=== PATIENT | female | born 1995 | race Caucasian/White ===

== ENCOUNTER → 2017-12-08 09:23 | Outpatient (CLI) | payer SELFPAY ==
[2017-12-08 10:58] LABS: Hemoglobin 10.3 g/dl (12.0-15.0); Mean Corp Hgb Conc 32.2 g/gl (32-36); Mean Corpuscular Hgb 31.1 pg (27.0-32.0); Mean Corpuscular Volume 96.7 fL (81-99); Platelet Count 202 K/mm3 (150-450); RBC Distribution Width CV 13.2 % (11.6-14.6); RBC Distribution Width SD 44.6 fl (35.1-43.9); Red Blood Count 3.31 M/mm3 (4.2-5.4); White Blood Count 8.6 K/mm3 (4.4-11.0)
[2017-12-08 11:00] LABS: Scan Indicated on CBC? Y/N NO
[2017-12-08 11:05] LABS: Glucose Challenge Gest 1H 50g 66 mg/dL (70-140)
[2017-12-08 12:00] LABS: HIV - WCH Non-Reactive (Nonreactive)
== END ==
PROVIDERS: Visit Provider Obstetrics & Gynecology
DX: Z34.83 Encounter for supervision of other normal pregnancy, third trimester (principal)
CPT/HCPCS: 36415; 82950; 85027; 86703

== ENCOUNTER → 2018-02-02 09:55 | Outpatient (CLI) | payer SELFPAY ==
[2018-02-02 12:35] LABS: Group B Strep DNA By PCR POSITIVE (Negative); Probe Check PASS
== END ==
PROVIDERS: Visit Provider Obstetrics & Gynecology
DX: Z36.85 Encounter for antenatal screening for Streptococcus B (principal)
CPT/HCPCS: 87653

== ENCOUNTER 2018-02-19 08:21 | Inpatient (IN) | payer SELFPAY ==
[2018-02-19 08:30] VITALS: BMI 27.8
[2018-02-19 09:09] LABS: ROM Internal Control Test YES-OK TO RESULT pt. (Internal QC)
[2018-02-19 09:10] LABS: ROM Patient Test POSITIVE (Negative)
[2018-02-19] MEDS: Lactated Ringers 1,000 ML 50 ML IV (09:22)
[2018-02-19 09:49] LABS: Hemoglobin 10.6 g/dl (12.0-15.0); Mean Corp Hgb Conc 32.1 g/gl (32-36); Mean Corpuscular Volume 96.5 fL (81-99); Mean Platelet Vol. 11.1 fl (6.2-12.0); Platelet Count 173 K/mm3 (150-450); RBC Distribution Width CV 13.3 % (11.6-14.6); RBC Distribution Width SD 44.2 fl (35.1-43.9); Red Blood Count 3.42 M/mm3 (4.2-5.4); Scan Indicated on CBC? Y/N NO; White Blood Count 10.2 K/mm3 (4.4-11.0)
[2018-02-19 09:53] LABS: Prothrombin Time (Protime)PT. 12.8 SECONDS (11.7-14.9)
[2018-02-19 09:54] LABS: Partial Thromboplast Time 26.8 Seconds (24.1-36.2)
[2018-02-19 09:56] LABS: Bedside Glucose 62 mg/dL (70-110)
[2018-02-19] MEDS: Dextrose 5%-Lactated Ringers 1,000 ML 150 ML IV (10:00)
[2018-02-19] MEDS: fentaNYL-bupivacaine (epidural) 100 ML BAG EPIDURAL (10:52)
[2018-02-19] MEDS: Oxytocin 30 units/NS 500 ml 30 UNITS/500 ML IV.SOLN 334 UNITS IV (12:00)
[2018-02-19] MEDS: Oxytocin 30 units/NS 500 ml 30 UNITS/500 ML IV.SOLN 167 UNITS IV (12:30)
--- NOTE | 2018-02-19 13:00 | PCM.OB.VAG ---
- Problem List (1) 38 weeks gestation of Status: Acute (2) Vacuum extraction, delivered, current hospitalization Status: Acute Vaginal Delivery Maternal Presentation: Spontaneous Rupture of Membranes, - - Latent labor Amniotic Membrane Rupture Type: Artificial Rupture of Membrane time: 02/19/18 - 0440h Amniotic Fluid Description: Clear Final NIKOS: 02/28/18 Final NIKOS Source: US <20 weeks Gestational age: 39 Weeks and 0 Days Date of Procedure: 02/19/18 Pre-Operative Diagnosis: 38 5/7wga, Cat II FHR Post-Operative Diagnosis: 38 5/7wga, Cat II FHR Surgery/ Procedure Performed: Vacuum Assisted Vaginal Delivery Anesthesiologist: Bisi Sebastian Type of Anesthesia: Epidural Description of Procedure: Patient was FD/+2 and OA on my arrival and pushed to +4 station. She began to have recurrent deep variable decelerations nadiring to the 60s bpm. I advised vacuum assisted vaginal delivery with review of r/b/i/a. Patient agreed to proceed. The Kiwi cap was placed at the flexion point and 500mmHg applied. There was significant descent with a single pull then a pop-off. The vacuum was again reapplied immediately to 500mmHg and with a single additional pull and maternal expulsive effort the head delivered. The vacuum was released. The shoulders and body delivered revealing a vigorous female infant. The infant was placed on the maternal abdomen and further attended by nursery personnel. The cord was doubly clamped and cut. Cord gases were obtained. A 1st degree perineal laceration was repaired with 3-0 Vicryl rapide. There was excellent hemostasis. Sponge counts correct x 2. Presentation: Vertex Placental Delivery Description: Spontaneous Cord Vessel Description: 3 Vessels Nuchal Cord Compression: Without compression Cord Gases drawn per routine: ABG, VBG Cord Entanglement: None Drain: Rust to straight drain A gender: Female (1 minute): 8 (5 minute): 9 Episiotomy Description: None Laceration: Midline, Perineal Extension/lac, 1st degree Medications given after delivery: IV Pitocin
[2018-02-19] MEDS: Ibuprofen 600 MG Tablet PO ×2 (14:14→20:55)
[2018-02-19 16:30] VITALS: BP 105/69; PULSE 76; RESP 16; TEMP 36.8
[2018-02-19 20:44] VITALS: BP 118/69; PULSE 69; RESP 18; TEMP 36.6
[2018-02-20 00:05] VITALS: BP 100/64; PULSE 60; RESP 18; TEMP 36.6
[2018-02-20] MEDS: Acetaminophen 500 MG Tablet 1000 MG PO ×3 (00:10→19:36)
[2018-02-20 03:45] VITALS: BP 95/57; PULSE 58; RESP 17; TEMP 36.4
[2018-02-20] MEDS: Ibuprofen 600 MG Tablet PO ×2 (03:59→11:31)
[2018-02-20 08:00] VITALS: BP 100/68; PULSE 78; RESP 18; TEMP 36.6
[2018-02-20] MEDS: Prenatal Vits Tablet 1 TABLET PO (08:20)
--- NOTE | 2018-02-20 08:50 | PCM.PN.OB ---
Patient Problems: Active and Suspected Problems 38 weeks gestation of (Acute) Subjective: Denies significant pain. No complaints. No heavy lochia. She is bottlefeeding. She would like to go home today. Objective: AVSS - Physical Exam General: Alert, Oriented x3, Cooperative, No apparent distress Lungs: Normal air movement Cardiovascular: Regular rate, Regular Rhythm, Normal S1, Normal S2 Abdomen: Soft, Non Tender, Non-Distended, - - Fundus firm and nontender, lochia moderate Extremities: No edema, No Calf Tenderness Neurological: Neuro grossly intact Psych/Mental Status: Normal Affect, Appropriate, Alert and oriented to time, place, person, mood and affect Vital Signs Temp Pulse Resp BP Pulse Ox 98.5 F 68 16 96/60 96 02/21/18 08:15 02/21/18 08:15 02/21/18 08:15 02/21/18 08:15 02/21/18 08:15 Oxygen Delivery Method Room Air Weight: 75.75 kg Body Mass Index (BMI) 27.8 Intake and Output for Last 24 Hours 02/19/18 02/20/18 02/21/18 23:59 23:59 23:59 Intake Total 1999 / 2000 Output Total 1200 / 1200 Balance 800 / 800 Medical Necessity - Tobacco Use Smoking Status: Never smoker Assessment/Plan Active and Suspected Problems 38 weeks gestation of (Acute) 22yo PPD#1 s/p VAVD doing well. -O positive, Rubella immune -Bottlefeeding - observation for GBS per Pediatrics, pt to discuss further for Peds. Will d/c home tomorrow.
[2018-02-20 12:00] VITALS: BP 102/64; PULSE 62; RESP 18; TEMP 36.6
[2018-02-20 16:00] VITALS: BP 96/54; PULSE 70; RESP 18; TEMP 36.6
[2018-02-20 20:27] VITALS: BP 106/69; PULSE 68; RESP 18; TEMP 36.8
[2018-02-21 02:00] VITALS: BP 101/60; PULSE 76; RESP 16; TEMP 36.4
[2018-02-21] MEDS: Acetaminophen 500 MG Tablet 1000 MG PO (05:54)
[2018-02-21 08:15] VITALS: BP 96/60; PULSE 68; RESP 16; TEMP 36.9; O2SAT 96
[2018-02-21] MEDS: Senna/Docusate Sodium 1 Tablet PO (08:55)
[2018-02-21] MEDS: Prenatal Vits Tablet 1 TABLET PO (08:55)
--- NOTE | 2018-02-21 10:10 | PCM.PN.OB ---
Patient Problems: Active and Suspected Problems 38 weeks gestation of (Acute) Subjective: No issues overnight. She has mild cramping, but it is tolerable. Denies heavy lochia. She looks forward to going home today. Objective: AVSS - Physical Exam General: Alert, Oriented x3, Cooperative, No apparent distress HEENT: Atraumatic, Normocephalic Lungs: Clear to auscultation, Normal air movement Cardiovascular: Regular rate, Regular Rhythm Abdomen: Soft, Non Tender, Non-Distended, - - Fundus firm and nontender Extremities: No edema, No Calf Tenderness Neurological: Neuro grossly intact Psych/Mental Status: Normal Affect, Appropriate, Alert and oriented to time, place, person, mood and affect Vital Signs Temp Pulse Resp BP Pulse Ox 98.5 F 68 16 96/60 96 02/21/18 08:15 02/21/18 08:15 02/21/18 08:15 02/21/18 08:15 02/21/18 08:15 Oxygen Delivery Method Room Air Weight: 75.75 kg Body Mass Index (BMI) 27.8 Intake and Output for Last 24 Hours 02/19/18 02/20/18 02/21/18 23:59 23:59 23:59 Intake Total 2000 / 2000 Output Total 1200 / 1200 Balance 800 / 800 Medical Necessity - Tobacco Use Smoking Status: Never smoker Assessment/Plan Active and Suspected Problems 38 weeks gestation of (Acute) 22yo PPD#2 s/p VAVD doing well. -O positive, Rubella immune -Bottlefeeding -d/c home today
--- NOTE | 2018-02-21 10:17 | DCINST_ITS ---
Discharge Diet: No Restrictions Discharge Activity: Return to Normal Activity, May Shower, May Take a Tub Bath May resume sexual activity in: 6 weeks Lifting Restrictions: 10-20lb Call your doctor if your incision/area has: Continuous Slow Oozing, Sudden Increased Bleeding, Increased Pain/ Swelling, Increased Redness, Foul Smelling Discharge Call your doctor if you observe: Fever of 101 or Higher, Inability to urinate, Inability to have a bowel movement, Using more than one pad per hour, Shortness of breath, Chest pain, Calf discomfort, Uncontrolled pain Additional Instructions: If you experience any of the following, contact your healthcare provider. * Bleeding that soaks a pad every hour for 2 hours * Fever 100.4 or higher * Unrelieved incision or abdominal pain * Swelling, redness, discharge or bleeding from your incision or episiotomy site * Your incision begins to separate * Problems urinating (including inability to urinate or burning while urinating) . * Visual changes * Severe headache * Flu-like symptoms * Pain or redness in one of both of your breasts * Pain, warmth, tenderness or swelling in your legs, especially the calf area * Frequent nausea and vomiting * Symptoms of depression or anxiety If you experience any of the following, call 911 or go to the nearest Emergency Room. * Chest pain * Problems breathing * Seizure activity * Partial or complete paralysis of a body part, slurred speech, weakness or drooping of the face, or a sudden inability to walk or hold your balance Allergies/Adverse Reactions: Allergies No Known Allergies Allergy (Verified 02/19/18 09:45) Medications to take at Discharge Docusate Sodium [Colace] 100 mg PO BID PRN PRN #60 cap 02/19/18 Ibuprofen 600 mg PO TID PRN #30 tab 02/19/18 Vits [Prenatabs FA] 1 tablet PO DAILY 02/19/18 The following prescriptions were given: Docusate Sodium [Colace] 100 mg PO BID PRN PRN #60 cap PRN Reason: Constipation Ibuprofen 600 mg PO TID PRN #30 tab PRN Reason: Pain Please Follow Up With: Haydee Ceron MD When: 6 weeks
[2018-02-21] MEDS: Ibuprofen 600 MG Tablet PO (11:00)
[2018-02-21 11:14] VITALS: BP 102/62; PULSE 67; RESP 16; TEMP 36.7; O2SAT 96
== END 2018-02-21 12:20 | disposition home or self-care (01) | DRG 775 ==
LOC: WPOUT 08:29 → WP 09:22
PROVIDERS: Admitting Provider Obstetrics & Gynecology; Visit Provider Obstetrics & Gynecology
DX: O76 Abnormality in fetal heart rate and rhythm complicating labor and delivery (principal); O70.0 First degree perineal laceration during delivery; Z37.0 Single live birth; O99.824 Streptococcus B carrier state complicating childbirth; Z3A.38 38 weeks gestation of pregnancy
CPT/HCPCS: 59025; 59050; 82962; 84112; 85027; 85610; 85730; 86850; 86900; J7120

== ENCOUNTER 2022-07-26 08:43 | Inpatient (IN) | payer SELFPAY ==
[2022-07-23 08:52] LABS: Absolute Neutrophil Count 2.8 X10^3/uL (2.0-7.7); Basophil# 0.04 X10^3/uL; Basophil% 0.8 % (0-1); Eosinophil# 0.33 X10^3/uL; Eosinophils% 6.3 % (0-5); Hematocrit 39.5 % (37-47); Hemoglobin 13.2 g/dL (12.0-15.0); Lymphocyte % 32.5 % (19-41); Mean Corp Hgb Conc 33.4 g/dL (32-36); Mean Corpuscular Volume 95.6 fL (81-99); Mean Platelet Vol. 10.3 fl (6.2-12.0); Monocyte% 7.6 % (0-10); NRBC Flagged by Analyzer 0 % (0-5); Neutrophil # 2.75 X10^3/uL (2.7-7.7); Neutrophil % 52.6 % (47-70); Platelet Count 234 K/mm3 (150-450); RBC Distribution Width CV 12.4 % (11.6-14.6); RBC Distribution Width SD 44.2 fl (35.1-43.9); Red Blood Count 4.13 M/mm3 (4.2-5.4); White Blood Count 5.2 K/mm3 (4.4-11.0)
[2022-07-23 09:20] LABS: Magnesium 2.1 mg/dL (1.6-2.6)
[2022-07-26] VITALS (18 sets, daily range): BP systolic 78–127; BP diastolic 48–79; PULSE 51–93; RESP 16–18; TEMP 36.6–37.3; O2SAT 96–100; BMI 25.6
--- NOTE | 2022-07-26 | HYST_PTH ---
PATIENT: JIGNESH FLANAGAN LOC: MS3 U#:[id number] AGE/SX: 27/F ROOM: [facility] RE07/26/[address]: Dr. Debbie Worley MD : 1995 BED: 1 DIS: 07/27/2022 SPEC #: [id number] RECD: 07/26/22 13:44 STATUS: PETEY REJonathan #: [id number] EBONY: 07/26/22 00:[address]: Debbie Worley DEPT: SURGICAL PATHOLOGY RECD BY: [place] ENTERED: 07/26/22 13:44 SP TYPE: HYSTERECT OTHR DR: MD Dr. Josue Porter MD Tissues: Uterus, NOS Procedures: Surgery Specimen Level V HEADER OPERATION: ERAS, IUD removal, vaginal hysterectomy, salpingectomy PRE-OP DIAGNOSIS: Incomplete uterovaginal prolapse, premenstrual dysphoric disorder TISSUE SUBMITTED: Uterus, bilateral fallopian tubes MICROSCOPIC DIAGNOSIS Uterus, hysterectomy: Cervix ? nabothian cysts and mild chronic inflammation. Endometrium ? weakly proliferative endometrium with focal cystic and decidual change. Myometrium ? superficial adenomyosis. Fallopian tubes ? benign paratubal cysts. AM:cristine 07/29/2022 MICROSCOPIC DESCRIPTION Slides are reviewed. GROSS DESCRIPTION Received in fixative is one container labeled with the patient's name and designated uterus. The specimen consists of a uterus with attached cervix with detached fallopian tubes. The uterus with cervix measures 7.2 x 5 x 3.5 cm and weighs 57 gm. The endocervical canal measures 3 cm in length and is grossly unremarkable. The triangular endometrial cavity measures 3 x 2.7 cm. The velvety, light meneses endometrium measures up to 0.2 cm in thickness. The myometrium measures 2 cm in average thickness and is free of mass lesions. The right and left fallopian tubes are similar in appearance with average lengths of 3.5 cm and average diameters of 0.8 cm. One fallopian tube contains a paratubal cyst adjacent to the fimbrial end that measures 0.6 cm in contains clear fluid. Vessel Specialist sections are submitted in eight cassettes as follows: 1 - anterior cervix, 2 - posterior cervix, 3 & 4 - anterior uterine wall, 5 & 6 - posterior uterine wall, 7 - fallopian tube with paratubal cyst, 8 - the other fallopian tube. / AM:cristine 07/26/2022 TC:5 [facility]: [id number]
--- NOTE | 2022-07-26 06:39 | HP.PCM_ITS ---
History and Physical Intake Vital Signs ? 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 01/17/22 [History Confirmed 07/08/22] Post menopausal: No Patient : No : No PFSH Family History? Grandfather Diabetes Social History? Smoking Status:? Never smoker alcohol intake:? never substance use type:? does not use caffeine:? Yes seatbelt use:? 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 she still has the IUD in and has light menses.? Female Reproductive History Menopausal Symptoms: Yes night sweats History ? ? ? 3 ? Elective abortions ? Hx Para ? ? ? 3 ? Spontaneous abortions ? Hx # Term Pregnancies ? Ectopic pregnancies ? Hx # Pregnancies ? Multiple births ? # of living children ? ? ? 3 Past Pregnancies B Del. Date Name GA/Weeks Outcome Route Bth Weight Gen Labor Lgth Anesthesia Del Locatn Provider FOB Unknown 2015 Shaun 39 live - full term NS VD ? Male ? ? Pomeredwight Campuzano ? Unknown 2017 Elvie 38 live - full term NS VD ? Female ? ? [facility] Nettie Landeros ? Unknown 2019 Magi 40 live - full term NS VD ? Female ? ? 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 Delivery Date:?? Last Updated by: Debbie Worley MD ? ? ? large third degree laceration ROS Const Constitutional: Reports night sweats Eyes Eyes: Denies system reviewed and no additional complaints, except as documented, as per HPI, blurry vision, change in vision, diplopia, dry eyes, irritation, loss of peripheral vision, photophobia, spots in vision or other ENT ENT: Reports system reviewed and no additional complaints, except as documented Cardio Card: Denies chest pain Resp Resp: Denies cough or dyspnea GI GI: Denies abdominal pain, bloating, change in stool character, constipation, fecal incontinence, nausea or vomiting : Reports prolapse symptoms and urinary incontinence; Denies pelvic pain, sexual dysfunction, urinary frequency, urinary urgency, vaginal discharge, vaginal odor or vaginal pruritus Musc Musc: Denies arthralgias, back pain or muscle weakness Neuro Neuro: Reports system reviewed and no additional complaints, except as documented Exam Const General: cooperative, healthy appearing, comfortable, no acute distress and well developed Orientation: alert [facility] Head: normal to inspection, normocephalic and atraumatic Ears: hearing grossly normal bilaterally and external ears normal Nose: external nose normal and nares normal Face and sinus: normal facial exam Neck Neck: normal visual inspection, full ROM, no lymphadenopathy and trachea midline Thyroid: thyroid normal GI Inspection: normal to inspection and non-distended Palpation: soft, no hepatosplenomegaly, no hepatomegaly, not rigid and nontender General: bladder normal to palpation External Female Exam: abnormal external appearance (atrophic introitus), normal appearance of the urethra and no lesions Urethra: normal appearance of the urethra Speculum Exam - Vagina: abnormal appearance of the vagina, normal vaginal discharge, vagina atrophic and no lesions Speculum Exam - Cervix: normal appearance of the cervix Bimanual Exam- Vagina & Uterus: normal bimanual exam, uterine size normal, bladder normal to palpation, uterine shape normal, uterine mobility normal and non-tender Bimanual Exam- Adnexa, other: normal adnexae, no masses, rectocele, cystocele and vaginal apex descent Pelvic Support: cystocele, rectocele and vaginal apex descent Musc Other: gross motor intact no deficits, full bilateral strength Skin General: no rashes or lesions noted and atrophy Neuro General: patient alert, patient awake, moves all extremities and no focal motor deficits Motor: muscle tone normal throughout Extrem General: normal to inspection and no pedal edema Psych Appearance: grossly normal Mental Status: mental status grossly normal Affect: normal affect Speech and Movement: speech and movement normal Coding Level of Care Code No Charge Diagnoses Incomplete uterovaginal prolapse? N81.2 PMDD (premenstrual dysphoric disorder)? F32.81 Assessment and Plan Assessment and Plan (1) Incomplete uterovaginal prolapse: ?Status:?Acute ?Comment: s/p fatimah echevarria TVHBS combo case. (2) PMDD (premenstrual dysphoric disorder): ?Status:?Acute ?Comment: iud. handout given Plan After discussing the patient's diagnosis and treatment plan options, patient wishes to proceed with surgical management.? I have discussed with the patient the risks, benefits, and alternatives of the procedure which include but are not limited to risks of anesthesia, bleeding, infection, possible damage to bowel, bladder, or surrounding vasculature which could lead to additional surgery to evaluate any complications.? Patient agrees to procedure and wishes to proceed.? ACOG/uptodate references given for additional information regarding procedure.? UPDATE- I have seen the patient and performed any clinically relevant updates to the history and physical exam. Debbie Worley MD
[2022-07-26 07:02] LABS: Internal QC Validated? YES +Cl - CLEAR BKGD; Pregnancy, Urine Negative Negative
[2022-07-26] MEDS: Acetaminophen 500 MG Tablet 1000 MG PO ×3 (07:14→18:46)
[2022-07-26] MEDS: Lactated Ringers 1,000 ML 40 ML IV ×3 (07:14→12:03)
[2022-07-26] MEDS: Gabapentin 600 MG Tablet PO (07:14)
[2022-07-26] MEDS: Celecoxib 200 MG Capsule 400 MG PO (07:14)
[2022-07-26] MEDS: Scopolamine 1mg/72hr Patch 1 PATCH TD (07:17)
[2022-07-26] MEDS: Enoxaparin 40 MG/0.4 ML Syringe SC (07:17)
[2022-07-26 07:50] LABS: Bedside Glucose 86 mg/dL (74-106)
[2022-07-26] MEDS: Cefazolin 2 GM in 0.9% Normal Saline 100 ML IV (08:23)
--- NOTE | 2022-07-26 09:17 | PCM.OPRPT ---
Problems Associated Problem List Diagnoses (1) Incomplete uterovaginal prolapse: Report of Operation Date of Procedure: 07/26/22 Pre-Operative Diagnosis: Incomplete uterovaginal prolapse, stress urinary incontinence Post-Operative Diagnosis: Same Surgery/Procedure Performed:: posterior repair, midurethral sling insertion, cystoscopy with bilateral ureteral catheterization Surgeon: Liset Nelson Type of Anesthesia: General Estimated Blood Loss (mL): 25cc Description of Procedure: The patient is a 27-year-old female with significant uterovaginal pelvic organ prolapse and stress urinary incontinence. She presents for surgical intervention in combination with hysterectomy and pelvic reconstruction. Informed consent was obtained. The patient was taken to the operating room and placed on the operating room table. Anesthesia monitored the head, neck, airway, IV access and vital signs throughout the case. Once anesthesia was appropriate ministered, the patient was placed into dorsal lithotomy position and was prepped and draped in usual sterile fashion. Rust catheter was inserted and the bladder was drained. Dr. Worley performed her portion of the procedure and close the vaginal cuff. At this time the case was turned to wv. The apical and anterior defects were not significant enough to require further intervention. She did continue to have a posterior defect present distally. The submucosa was injected with vasopressin for hemostatic control and hydrostatic dissection. An incision approximately 2 cm in length was then made. Sharp and blunt dissection was performed until the rectovaginal fascia was identified. This was then brought together in a [address] down to and including the perineal body. The vaginal mucosa was then closed using running interlocking 2-0 Vicryl. The mid urethra was then identified and injected submucosally with vasopressin as well. The urethra was very short, and the decision was made to place the sling slightly closer to her bladder neck. A midline incision was made and sharp and blunt dissection was performed on either side of the urethra with care being taken to avoid entrance into the urethra or the vaginal mucosa. Using the provided trochars, the Altis mid urethral sling was placed into her obturator complexes bilaterally. The sling lay flat against the urethra and was placed using the tensioning suture. The suture was then cut in the midline incision was closed using running interlocking 2-0 Vicryl. The patient was then taken out of Trendelenburg positioning and her Rust catheter was removed. The cystoscope was inserted through the urethra under direct visualization into the urinary bladder. There were no entrances into the urethra or the urinary bladder with any foreign object. There is no hemorrhage identified. A Pollick catheter was then used to gently cannulate each ureteral orifice and was advanced easily to 20 cm by laterally without evidence of obstruction or hemorrhage. At this time the cystoscope was removed and the Rust catheter was replaced with the balloon inflated with 10 cc. The vagina was packed with vaginal packing. The patient was awakened and taken to the recovery room in good condition. There were no complications during this procedure. Grafts/Implants Used: Altis midurethral sling Complications none Admit VTE Documentation VTE Present on Admission: Yes VTE Mechan Device Prophylaxis: SCD's VTE Pharm Prophylaxis ordered?: Yes
--- NOTE | 2022-07-26 09:18 | DCINST_ITS ---
Discharge Instructions Diet Discharge Diet: No restrictions Activity Discharge Activity: May Shower May resume sexual activity in: 8 weeks Lifting Restrictions: 5 pounds Additional Activity Instructions:: No strenuous activity, no exercise, no sexual activity, no tub bathing, no swimming, no hot tubs, no vacuuming Dressing / Incision Call your doctor if your incision/area has: Continuous Slow Oozing, Sudden Increased Bleeding, Increased Pain/ Swelling, Increased Redness, Foul Smelling Discharge and Swelling at the incision site Call your doctor if you observe: Fever of 101 or Higher, Inability to urinate and Inability to have a bowel movement Follow Up Care Please Follow Up With: Liset Nelson MD When: In the office in 2 weeks, call for appointment Test Results: Test results from this visit will be discussed in further detail at your follow- up appointment, if applicable. Discharge Plan Admission Admit Date/Time: 07/26/22 08:43 Attending Provider: Debbie Worley Primary Care Provider: Josue Guthrie Consulting Providers: Liset Nelson Discharge Orders/Prescriptions Prescriptions: New oxycodone-acetaminophen [Percocet] 5-325 mg tablet 1 tab PO Q8H PRN (Reason: pain) 5 Days Qty: 20 0RF cephalexin [cephalexin] 500 mg capsule 500 mg PO Q12 3 Days Qty: 6 0RF Continued magnesium Tablet 2 tab PO DAILY Referrals / Follow Up: Josue Guthrie MD [Primary Care Provider] - Disposition Disposition (needs filled in before D/C Order can be placed): Home, Self Care
[2022-07-26] MEDS: Vasopressin 20 UNITS/ML Vial (10:29)
[2022-07-26] MEDS: Ondansetron 4 MG/2 ML Vial IV (11:23)
[2022-07-26] MEDS: Cephalexin 500 MG Capsule PO ×2 (14:13→21:16)
[2022-07-26] MEDS: Docusate Sodium 100 MG Capsule PO ×2 (14:13→21:16)
[2022-07-26] MEDS: Ketorolac 30 MG/ML Syringe IV ×2 (14:13→18:46)
--- NOTE | 2022-07-26 16:21 | PCM.OPRPT ---
Problems Associated Problem List Diagnoses (1) Incomplete uterovaginal prolapse: (2) PMDD (premenstrual dysphoric disorder): Report of Operation Date of Procedure: 07/26/22 Pre-Operative Diagnosis: see PL Post-Operative Diagnosis: same Surgery/Procedure Performed:: TVH BS Description of Surgical Findings:: nl uterus tubes school community relations coordinator: Thao Vallejo Type of Anesthesia: General Specimen's removed: uterus, tubes Drains: martin Fluids Replaced: crystalloid Description of Procedure: Patient was taken to the operating room and was placed under general anesthesia was prepped and draped in normal sterile fashion in the dorsal lithotomy position. Preoperative antibiotics and SCDs and Martin catheter was placed inside the bladder. Weighted speculum was placed in the vagina and the anterior and posterior lip of the cervix was grasped with 2 Victor M clamps and circumferentially injected with dilute vasopressin. A circumferential incision was made with a scalpel and the posterior cul-de-sac was entered into sharply and a longneck speculum was placed. The anterior cul-de-sac was also dissected down and entered into sharply and the uterosacral ligaments were clamped cut and suture ligated bilaterally followed by the cardinal ligaments which were Clamped cut and suture ligated bilaterally with 0 Monocryl. The uterus serially descended and progressive bites were taken bilaterally up to the level of the utero-ovarian ligament bilaterally which was clamped transected and double ligated with 0 Monocryl suture and 0 Vicryl free tie. Bilateral fallopian tubes and ovaries were well visualized and noted be within normal limits and the tube was clamped at the base and transected and ligated with O monocryl. Excellent hemostasis was noted. The vagina was closed with [id number] 0 Vicryl pop offs including the posterior and anterior peritoneum in the reapproximation. Excellent hemostasis was noted. Then Dr. Nelson began her portion of the procedure. Grafts/Implants Used: none Complications none Admit VTE Documentation VTE Present on Admission: No VTE Mechan Device Prophylaxis: SCD's VTE Pharm Prophylaxis ordered?: Yes Multi Select Codes Urinary/Genital Urinary/Genital CPT Codes: 83735 TVH+BS/O <250gr uterus
--- NOTE | 2022-07-26 16:22 | DCINST_ITS ---
Discharge Instructions Diet Discharge Diet: No restrictions Activity May resume sexual activity in: 8 weeks Additional Activity Instructions:: No strenuous activity, no exercise, no sexual activity, no tub bathing, no swimming, no hot tubs, no vacuuming Dressing / Incision Call your doctor if your incision/area has: Continuous Slow Oozing, Sudden Increased Bleeding, Increased Pain/ Swelling, Increased Redness, Foul Smelling Discharge and Swelling at the incision site Call your doctor if you observe: Fever of 101 or Higher, Inability to urinate and Inability to have a bowel movement Follow Up Care Please Follow Up With: Liset Nelson MD Test Results: Test results from this visit will be discussed in further detail at your follow- up appointment, if applicable. Discharge Plan Admission Admit Date/Time: 07/26/22 08:43 Attending Provider: Debbie Worley Primary Care Provider: Josue Guthrie Consulting Providers: Liset Nelson Discharge Orders/Prescriptions Prescriptions: New oxycodone-acetaminophen [Percocet] 5-325 mg tablet 1 tab PO Q8H PRN (Reason: pain) 5 Days Qty: 20 0RF cephalexin [cephalexin] 500 mg capsule 500 mg PO Q12 3 Days Qty: 6 0RF Continued magnesium Tablet 2 tab PO DAILY Referrals / Follow Up: Josue Guthrie MD [Primary Care Provider] - Disposition Disposition (needs filled in before D/C Order can be placed): Home, Self Care
[2022-07-26] MEDS: oxyCODONE 5 MG Tablet PO (17:18)
[2022-07-26] MEDS: Ondansetron ODT 4 MG Tablet PO (17:40)
[2022-07-26] MEDS: 0.9% Saline Lock 10 ML Syringe IV (18:46)
[2022-07-27] VITALS (7 sets, daily range): BP systolic 97–124; BP diastolic 62–77; PULSE 58–82; RESP 16–18; TEMP 36.7–37.1; O2SAT 98–100
[2022-07-27] MEDS: Ketorolac 30 MG/ML Syringe IV ×3 (00:30→11:44)
[2022-07-27] MEDS: Acetaminophen 500 MG Tablet 1000 MG PO ×3 (00:30→14:02)
[2022-07-27] MEDS: Magnesium Chloride 64 MG Delay Rel.Tablet 128 MG PO (00:42)
[2022-07-27] MEDS: 0.9% Saline Lock 10 ML Syringe IV ×2 (06:39→11:44)
[2022-07-27 06:55] LABS: Hematocrit 34.8 % (37-47); Hemoglobin 11.2 g/dL (12.0-15.0); Mean Corp Hgb Conc 32.2 g/dL (32-36); Mean Corpuscular Hgb 30.9 pg (27.0-32.0); Mean Corpuscular Volume 96.1 fL (81-99); Mean Platelet Vol. 10.7 fl (6.2-12.0); Platelet Count 210 K/mm3 (150-450); RBC Distribution Width CV 12.5 % (11.6-14.6); RBC Distribution Width SD 44.2 fl (35.1-43.9); Red Blood Count 3.62 M/mm3 (4.2-5.4); White Blood Count 11.1 K/mm3 (4.4-11.0)
[2022-07-27] MEDS: Docusate Sodium 100 MG Capsule PO (09:01)
[2022-07-27] MEDS: Enoxaparin 40 MG/0.4 ML Syringe SC (09:01)
[2022-07-27] MEDS: Cephalexin 500 MG Capsule PO (09:01)
--- NOTE | 2022-07-27 11:15 | NURSING ---
called in after paged by primary RN Jamilah regarding vaginal packing. Jamilah RN states in with another patient asked this nurse to inform Dr. Nelson that generally nursing does not remove vaginal packing, packing still in wondering if she was coming in to see pt. Dr. Nelson verbalized upset that packing was not removed or not notified sooner as ordered 3.5hrs ago to be removed, wasn't called earlier. She would be in shortly Jamilah RN notified of response.
--- NOTE | 2022-07-27 11:21 | PCM.PROGNOTE ---
Subjective Subjective Patient did well overnight. She is resting comfortably in bed. No nausea and her pain is controlled. Objective Data Objective Data Vital Signs: Vital Signs Temp Pulse Resp BP Pulse Ox O2 Del Method O2 Flow Rate 98.3 F 82 18 112/64 100 Room Air 4 07/27/22 09:00 07/27/22 09:00 07/27/22 09:00 07/27/22 09:00 07/27/22 09:00 07/27/22 09:00 07/27/22 04:32 Oxygen Flow Rate (L/min) 4 Oxygen Delivery Method Room Air Weight: 72 kg Body Mass Index (BMI) 25.6 Intake & Output: Intake and Output for Last 24 Hours 07/25/22 07/26/22 07/27/22 23:59 23:59 23:59 Intake Total 2212 / 2212 689.83 / 689.83 Output Total 940 / 1440 1450 / 1450 Balance 1272 / 772 -760.17 / -760.17 Lab / Micro Data Result Diagrams: 07/27/22 06:32 Labs: Laboratory Results - last 24 hr 07/27/22 06:32: WBC 11.1 H, RBC 3.62 L, Hgb 11.2 L, Hct 34.8 L, MCV 96.1, MCH 30.9, MCHC 32.2, RDW Std Deviation 44.2 H, RDW Coeff of Mary 12.5, Plt Count 210, MPV 10.7 Physical Exam Narrative Alert and oriented x3 in no acute distress Abdomen is soft, nontender nondistended Rust catheter and vaginal packing were removed without incident SCDs in place and no calf tenderness Assessment & Plan Assessment/Plan (1) Incomplete uterovaginal prolapse: (2) Overflow stress urinary incontinence in female: PLAN: Plan Trial of void today Discharge later today Follow-up in the office in 2 weeks
--- NOTE | 2022-07-27 12:52 | NURSING ---
PVR completed. pt states she voided a little bit into the toilet as well MD notified. Repeat PVr with next void.
--- NOTE | 2022-07-27 13:45 | CASEMGMT ---
JOSSELYN LANDRY CANOE MAKER CM to room to meet with patient for initial transition planning/care coordination assessment. JOSSELYN LANDRY introduced self and role at [facility]. Pt voices understanding and consents to assessment at this time. Pt resting in bed in no distress at this time. @ bedside. Pt is A/O at this time and answers all questions appropriately. Care providers, pharmacy, and demographics verified/updated at this time. PCP: Dr Guthrie Specialists: Dr Worley--[employer] Preferred Pharmacy: [facility] Retail Insurance: [facility] Package Plan Prescription Benefit: no Living Will/HPOA: Pt does not currently have LW/HCPOA LNOK: Josue Living Arrangements: Pt lives w/ and 3 children-ages 2, 4, 6. Independent Transportation: Hire drivers DME: Denies using any DME and denies needs. HHC/SNF: No hx Pt wishes to return home and states has no concerns with going home at time of discharge. PLAN: Home Anny BAGLEY RN, CM
== END 2022-07-27 14:45 | disposition home or self-care (01) | DRG 743 ==
LOC: SDC 10:46 → MS3 10:46
PROVIDERS: Anesthesiology; Urology; Admitting Provider Obstetrics & Gynecology; PCP Family Medicine; Referring Provider Obstetrics & Gynecology; Visit Provider Obstetrics & Gynecology
PROC: 0UT97ZZ Resection of Uterus, Via Natural or Artificial Opening (ICD-10-PCS; CPT 58260; principal; 2022-07-26 07:40)
PROC: 0JQC0ZZ Repair Pelvic Region Subcutaneous Tissue and Fascia, Open Approach (ICD-10-PCS; CPT 57260; 2022-07-26 07:40)
DX: N81.2 Incomplete uterovaginal prolapse (principal); F32.81 Premenstrual dysphoric disorder; N80.03 Adenomyosis of the uterus; N36.42 Intrinsic sphincter deficiency (ISD); N95.1 Menopausal and female climacteric states; N39.46 Mixed incontinence; N88.8 Other specified noninflammatory disorders of cervix uteri; N83.8 Other noninflammatory disorders of ovary, fallopian tube and broad ligament
CPT/HCPCS: 36415; 81025; 82962; 83735; 85025; 85027; 86850; 86900; 86901; 88307; 99251; J7120; A4216; C1758; G0463; J2405; J3475

== ENCOUNTER → 2023-09-05 | Outpatient (CLI) | payer OTHER, SELFPAY | END | disposition home or self-care (01) | LOC: LABSPEC 11:57 | PROVIDERS: PCP Family Medicine; Visit Provider Obstetrics & Gynecology | DX: N39.0 Urinary tract infection, site not specified (principal) | CPT/HCPCS: 87086 ==

== ENCOUNTER 2025-03-02 11:08 | Day surgery (SDC) | payer SELFPAY, OTHER ==
--- NOTE | 2025-03-02 11:38 | HP.PCM_ITS ---
[facility] - General General Date of Admission: 03/02/25 Date of Service: 03/02/25 Chief Complaint: Family history of colon cancer and abdominal pain HPI Narrative JIGNESH FLANAGAN, is a 29 F who presents with a family hx of colon cancer and abdominal pain Pt here to be scheduled for colonoscopy and EGD. Pt father was diagnosed with colon cancer at age 60. He underwent surgery and chemotherapy but about one year after his diagnosis. Pt brother was also diagnosed with colon cancer at age 30. He had undergone surgical resection and chemotherapy with good results. Pt has has had chronic constipation for years. She typically has a bm every other day. She endorses issues with abd cramping and diarrhea every couple of months. She has epigastric knawing pain that never goes away. [facility] Medical History (Updated 03/02/25 @ 11:[address] Torito Colindres, DO) Bladder disease Difficulty swallowing Gastric reflux Overflow stress urinary incontinence in female Wears glasses Non-smoker Incomplete uterovaginal prolapse Home Medications ?Medication ?Instructions ?Recorded ?Last Taken ?Type multivitamin 1 tab PO DAILY 09/05/23 Unkn own History Allergy/AdvReac Type Severity Reaction Status Date / Time No Known Allergies Allergy Verified 03/01/25 13:13 Family History Grandfather Diabetes Father Colon cancer, Onset Age: 60 Surgical History H/O bilateral salpingectomy H/O total vaginal hysterectomy Social History Smoking Status: Never smoker alcohol intake: never substance use type: does not use caffeine: Yes seatbelt use: always 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 Constitutional Constitutional: Denies fatigue, fever(s), poor appetite, weight gain or weight loss Gastrointestinal Gastrointestinal: Denies belching, bloating, change in bowel habits, change in stool character, chewing difficulty, coffee ground emesis, constipation, cramping, diarrhea, dyspepsia, dysphagia, early satiety, excessive flatus, fecal incontinence, heartburn, hematemesis, hematochezia, hemorrhoids, loose stools, melena, nausea, odynophagia, rectal bleeding, tenesmus, vomiting or weight changes Physical Exam Const alert, oriented x3, no apparent distress and healthy appearing General Appearance: cooperative GI normal to inspection, nondistended, normoactive bowel sounds, soft to palpation, non-tender and non-distended Percussion: normal to percussion Rectal Exam: deferred Assessment & Plan Assessment/Plan (1) Epigastric pain: (2) Family history of colon cancer: (3) Constipation: (4) Difficulty swallowing: PLAN: Assessment and Plan Assessment and Plan (1) Family history of colon cancer: Status: Acute (2) Constipation: Status: Acute (3) Epigastric pain: Status: Acute Plan: This is a 29 yo female pt here today for evaluation prior to EGD and colonposcy. Pt has a family hx of colon cancer in her brother and father. SHe has never had a colonoscopy or EGD. She has chronic constipation and epigastric pain for years. She will undergo both upper and lower endoscopy. I recommended she start a daily fiber supplement. She is agreeable to this. -EGD and colonoscopy -Start fiber supplement
--- NOTE | 2025-03-02 11:38 | PCM.PRE.AN2 ---
ASA Classification* ASA Classification ASA Classification: 2 Assessment & Plan Anesthesia* Anesthesia Assessment Anesthesia Assessment: Discussed sedation and/or anesthesia options, risks, benefits, and alternatives with patient/parents/legal guardian/POA. Questions invited. The patient/parents/legal guardian/POA seems to understand and agrees to proceed with anesthesia plan. Reviewed the physical assessment, medical history, allergy history and patient home medications list prior to surgery/procedure/anesthetic and documented any changes. Performed airway and anesthesia risk assessments. Anesthesia Type Anesthesia Type: MAC Anesthesia Focused Assessment* Airway Assessment Mouth opens: >3 cm Mallampati Score: II Focused Labs Anesthesia Preop lab: CBC WBC 11.1 K/mm3 (4.4-11.0) H 07/27/22 06:32 07/27/22 RBC 3.62 M/mm3 (4.2-5.4) L 07/27/22 06:32 07/27/22 Hgb 11.2 g/dL (12.0-15.0) L 07/27/22 06:32 07/27/22 Hct 34.8 % (37-47) L 07/27/22 06:32 07/27/22 Plt Count 210 K/mm3 (150-450) 07/27/22 06:32 07/27/22 CHEMISTRY Magnesium 2.1 mg/dL (1.6-2.6) 07/23/22 08:25 07/23/22 POC Glucose 86 mg/dL (74-106) 07/26/22 07:02 07/26/22 COAG PT 12.8 SECONDS (11.7-14.9) 02/19/18 09:22 02/19/18 Urine Test Negative Negative 07/26/22 06:40 07/26/22 Pre-Assessment Diagnosis/Proposed Procedure Planned Operative Procedure(s): COLONOSCOPY, EGD Anesthesia History Anesthesia History - progressive care unit registered nurse: Anesthesia History - progressive care unit registered nurse Hx Hospitalization No 03/01/25 13:14 Any Problems With Anesthesia No 03/01/25 13:14 Cholinesterase deficiency No 03/01/25 13:14 You/Your Family Experience No 03/01/25 13:14 fever (hyperthermia) with Relationship Recent Exposure to Contagious No 07/26/22 07:03 Disease Does patient have nerve No 03/01/25 13:14 stimulator Patient instructed to have device shut off --Does patient have Pacemaker or ICD? When Was Last Pacemaker Check QUESTION #4 FULL TEXT: You/Your Family Experience fever (hyperthermia) with Anesthesia Last Oral Intake Last Oral intake: Last Oral Intake NPO since Meds taken in AM with sips of water? Meds patient instructed to take am of surgery PONV PONV - progressive care unit registered nurse: PONV - progressive care unit registered nurse Female Yes 03/01/25 13:14 HX of Motion Sickness No 03/01/25 13:14 HX of N/V After Surgery Yes 03/01/25 13:14 Non-Smoker Yes 03/01/25 13:14 Duration of Surgery greater No 03/01/25 13:14 than 60 minutes Number of Risk Factors 3 03/01/25 13:14 PONV Score Moderate Risk 03/01/25 13:14 Height & Weight Height & Weight: Anesthesia: Height & Weight Height 5 ft 6 in 09/05/23 10:21 Respiratory Assessment Respiratory Assessment - progressive care unit registered nurse: Respiratory Tract Infection Hx - progressive care unit registered nurse Hx Respiratory Tract Infection No 03/01/25 13:14 STOP Sleep Apnea STOP Sleep Apnea - progressive care unit registered nurse: STOP Sleep Apnea - progressive care unit registered nurse Hx Hypertension No 03/01/25 13:14 Hx Sleep Apnea No 03/01/25 13:14 CPAP BIPAP Do you snore loudly (louder No 03/01/25 13:14 than talking or can be heard Do you often feel tired/ No 03/01/25 13:14 fatigued/ sleepy during daytime? Has anyone observed you stop No 03/01/25 13:14 breathing during sleep? STOP Results Negative 03/01/25 13:14 QUESTION #5 FULL TEXT : Do you snore loudly (louder than talking or can be heard through closed doors)? 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 Specify any problems Hx of Preganancy in last 3 No 03/01/25 13:14 Months [facility] 03/01/25 13:14 & Questions: Date: 03/01/25 03/01/25 13:14 Time: 13:18 03/01/25 13:14 Patient unable to answer at this time (ie. confused, unrespo /Reproduction History /Reproductive History - progressive care unit registered nurse: /Reproductive Hx- progressive care unit registered nurse Hx Now No 03/01/25 13:14 Gestational Age (in weeks): EDC: Hx Hx Para Hx Section SAB No 03/01/25 13:14 PFSH Medical History Bladder disease Difficulty swallowing Gastric reflux Overflow stress urinary incontinence in female Wears glasses Non-smoker Incomplete uterovaginal prolapse Home Medications ?Medication ?Instructions ?Recorded ?Last Taken ?Type multivitamin 1 tab PO DAILY 09/05/23 Unknown History Allergy/AdvReac Type Severity Reaction Status Date / Time No Known Allergies Allergy Verified 03/01/25 13:13 Family History Grandfather Diabetes Father Colon cancer, Onset Age: 60 Surgical History H/O bilateral salpingectomy H/O total vaginal hysterectomy Social History Smoking Status: Never smoker alcohol intake: never substance use type: does not use caffeine: Yes seatbelt use: always 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
[2025-03-02] MEDS: Lactated Ringers 1,000 ML 15 ML IV (11:59)
[2025-03-02 12:00] VITALS: BP 99/72; PULSE 58; RESP 17; TEMP 36.6; O2SAT 99; BMI 26.6
--- NOTE | 2025-03-02 12:30 | EGD_PTH ---
PATIENT: JIGNESH FLANAGAN LOC: [facility] U#:[id number] AGE/SX: 29/F ROOM: RE03/02/[address]: Dr. Torito Colindres DO : 1995 BED: DIS: 03/02/2025 SPEC #: [id number] RECD: 03/03/25 17:54 STATUS: PETEY REJonathan #: [id number] EBONY: 03/02/25 12:[address]: Torito Colindres DEPT: SURGICAL PATHOLOGY RECD BY: Martir Sanchez ENTERED: 03/03/25 08:59 SP TYPE: EGD BIOPSY DESIRE DR: Dr. Josue Guthrie MD Tissues: A - Duodenum, NOS B - Gastric mucous membrane C - Esophagus, NOS D - Ileum, NOS Procedures: Immunohistochemical Stains Surgery Specimen Level IV HEADER OPERATION: Colonoscopy with biopsy, EGD with biopsy PRE-OP DIAGNOSIS: Epigastric pain, family history of colon cancer, constipation, difficulty swallowing TISSUE SUBMITTED: A- Duodenum biopsy, B- Gastric body biopsy, C- Random esophagus biopsy, D- Terminal ileum biopsy MICROSCOPIC DIAGNOSIS A. Small bowel, duodenum, biopsy: Normal villous architecture with [place] gland hyperplasia and increased intraepithelial lymphocytes. - see note Note: This pattern of injury is etiologically nonspecific?and the differential diagnosis includes sensitivity to gluten and non-gluten proteins, small intestinal bacterial overgrowth, stasis related changes, infection, protein calorie malnutrition, tropical sprue, and medication injury (NSAIDs, Olmesartan / Benicar, Mycophenolic acid, Idelalisib, for example). If celiac disease is a clinical concern, additional clinical studies, such as tTG-IgA, are recommended. B. Stomach, gastric body, biopsy: Oxyntic mucosa with no specific pathologic change. IHC negative for H pylori organisms. C. Esophagus, random, biopsy: Squamous mucosa negative for eosinophils. D. Small bowel, terminal ileum, biopsy: Normal villous architecture with prominent mucosal lymphoid aggregates, favor reactive process. MICROSCOPIC DESCRIPTION Slides are reviewed. All matched controls reacted appropriately. These tests were developed and their performance characteristics determined by [facility]. They may not have been cleared or approved by the U.S. Food and Drug Administration. The FDA has determined that such clearance or approval is not necessary. The above immunohistochemical/dualISH markers are ordered and reviewed by the Pathologist. GROSS DESCRIPTION A. Received in formalin in a container labeled with the patient's name, date of , and duodenum biopsy are 2 meneses-pink strips of mucosal tissue measuring 0.6 x 0.2 x 0.2 cm and 0.9 x 0.2 x 0.2 cm. Submitted in toto in A1. B. Received in formalin in a container labeled with the patient's name, date of , and gastric body biopsy are 2 meneses-pink fragments of mucosal tissue each measuring 0.4 x 0.3 x 0.3 cm. Submitted in toto in B1. C. Received in formalin in a container labeled with the patient's name, date of , and random esophagus are multiple tiny white-pink fragments of mucosal tissue measuring 0.6 x 0.5 x 0.2 cm in aggregate. Submitted in toto in C1. D. Received in formalin in a container labeled with the patient's name, date of , and terminal ileum are multiple meneses-pink fragments of mucosal tissue measuring 1.1 x 0.6 x 0.3 cm in aggregate. Submitted in toto in D1. [facility] 03-03-2025 CPT:[id number]
[2025-03-02 13:55] VITALS: BP 100/64; BP 99/75; PULSE 70; RESP 16; TEMP 36.9; O2SAT 100
[2025-03-02 13:59] VITALS: BP 100/64; PULSE 57; RESP 16; TEMP 36.9; O2SAT 100
--- NOTE | 2025-03-02 13:59 | PCM.POST.ANE ---
Anesthesia: Postop Eval I Current Vital Signs Temperature: 98.5 F Pulse Rate: 57 Blood Pressure: 100/64 Respiratory Rate: 16 Pulse Ox: 100 Assessment Airway patent: Yes Spontaneous unlabored respirations: Yes nausea: No Vomiting: No Anesthesia Complication: No Fluid Hydration Crystalloid volume administer (ml): 200 Total IV fluid infused: 200 Progress Note Anesthesia document: Postop Eval 1 completed: Yes
[2025-03-02 14:00] VITALS: BP 99/69; BP 99/75; PULSE 64; RESP 16; O2SAT 100
--- NOTE | 2025-03-02 14:04 | OP.EGD_ITS ---
Patient Name: Arlette Helton Procedure Date: 03/02/2025 1:23 PM Date of : 1995 Age: 29 Procedure: Upper GI endoscopy Indications: Epigastric abdominal pain Providers: Torito Colindres DO Medicines: Monitored Anesthesia Care Patient Profile: This is a 29 year old female. Refer to note in patient chart for documentation of history and physical. Patient has symptoms of chronic abdominal cramping, chronic epigastric abdominal pain, chronic dyspepsia, chronic heartburn and chronic nausea. Complications: No immediate complications. Procedure: Pre-Anesthesia Assessment: - Prior to the procedure, a History and Physical was performed, and patient medications and allergies were reviewed. The patient is competent. The risks and benefits of the procedure and the sedation options and risks were discussed with the patient. All questions were answered and informed consent was obtained. Patient identification and proposed procedure were verified by the physician in the pre-procedure area. Mental Status Examination: alert and oriented. Airway Examination: normal oropharyngeal airway and neck mobility. Respiratory Examination: clear to auscultation. CV Examination: normal. Prophylactic Antibiotics: The patient does not require prophylactic antibiotics. Prior Anticoagulants: The patient has taken no anticoagulant or antiplatelet agents. ASA Grade Assessment: II - A patient with mild systemic disease. After reviewing the risks and benefits, the patient was deemed in satisfactory condition to undergo the procedure. The anesthesia plan was to use monitored anesthesia care (MAC). Immediately prior to administration of medications, the patient was re-assessed for adequacy to receive sedatives. The heart rate, respiratory rate, oxygen saturations, blood pressure, adequacy of pulmonary ventilation, and response to care were monitored throughout the procedure. The physical status of the patient was re-assessed after the procedure. After obtaining informed consent, the endoscope was passed under direct vision. Throughout the procedure, the patient's blood pressure, pulse, and oxygen saturations were monitored continuously. The pediatric colonoscope was introduced through the mouth, and advanced to the fourth part of the duodenum. Small bowel enteroscopy was deemed necessary. The upper GI endoscopy was accomplished without difficulty. The patient tolerated the procedure well. Scope In: 1:33:13 PM Scope Out: 1:36:36 PM Total Procedure Duration Time 0 hours 3 minutes 23 seconds Findings: The examined esophagus was normal. Biopsies were obtained from the proximal and distal esophagus with cold forceps for histology of suspected eosinophilic esophagitis. Patchy mild inflammation characterized by erythema was found in the gastric body. Biopsies were taken with a cold forceps for histology. Verification of patient identification for the specimen was done. Estimated blood loss was minimal. Biopsies were taken with a cold forceps for Helicobacter pylori testing. Verification of patient identification for the specimen was done. Estimated blood loss was minimal. No gross lesions were noted in the entire examined duodenum. Impression: - Normal esophagus. - Chronic gastritis. Biopsied. - No gross lesions in the entire examined duodenum. - Biopsies were taken with a cold forceps for evaluation of eosinophilic esophagitis. Recommendation: - Discharge patient to home. - Resume previous diet. - Continue present medications. Procedure Code(s): --- Professional --- 30042, Small intestinal endoscopy, enteroscopy beyond second portion of duodenum, not including ileum; with biopsy, single or multiple CPT copyright 2021 [employer]. All rights reserved. The codes documented in this report are preliminary and upon benefits consultant review may be revised to meet current compliance requirements. Torito Colindres DO 03/02/2025 2:03:58 PM This report has been signed electronically. Number of Addenda: 0 Note Initiated On: 03/02/2025 1:23 PM
--- NOTE | 2025-03-02 14:04 | OP.CCLET_ITS ---
03/02/2025 Josue Guthrie [address] [place] [id number] Re : Upper GI endoscopy procedure for Arlette Helton Dear Dr. Guthrie This procedure was performed on Sunday, March 02, 2025. My impressions and recommendations are as follows: Impressions : - Normal esophagus. - Chronic gastritis. Biopsied. - No gross lesions in the entire examined duodenum. - Biopsies were taken with a cold forceps for evaluation of eosinophilic esophagitis. Recommendations : - Discharge patient to home. - Resume previous diet. - Continue present medications. My findings are described in the full procedure note, which is enclosed. If I can be of further assistance, please feel free to contact me at . Sincerely, Torito Colindres, 03/02/2025 2:03:58 PM This report has been signed electronically.
[2025-03-02 14:05] VITALS: BP 104/74; BP 99/75; PULSE 65; RESP 16; TEMP 36.7; O2SAT 100
--- NOTE | 2025-03-02 14:06 | OP.COLON_ITS ---
Patient Name: Arlette Helton Procedure Date: 03/02/2025 1:36 PM Date of : 1995 Age: 29 Procedure: Colonoscopy Indications: Abdominal pain in the left lower quadrant, Chronic diarrhea, Clinically significant diarrhea of unexplained origin Providers: Torito Colindres DO Medicines: Monitored Anesthesia Care Patient Profile: This is a 29 year old female. Refer to note in patient chart for documentation of history and physical. Patient has symptoms of chronic abdominal cramping, chronic epigastric abdominal pain, chronic dyspepsia, chronic heartburn and chronic nausea. Last Colonoscopy: none. The patient's first colonoscopy is today. Complications: No immediate complications. Procedure: Pre-Anesthesia Assessment: - Prior to the procedure, a History and Physical was performed, and patient medications and allergies were reviewed. The patient is competent. The risks and benefits of the procedure and the sedation options and risks were discussed with the patient. All questions were answered and informed consent was obtained. Patient identification and proposed procedure were verified by the physician in the pre-procedure area. Mental Status Examination: alert and oriented. Airway Examination: normal oropharyngeal airway and neck mobility. Respiratory Examination: clear to auscultation. CV Examination: normal. Prophylactic Antibiotics: The patient does not require prophylactic antibiotics. Prior Anticoagulants: The patient has taken no anticoagulant or antiplatelet agents. ASA Grade Assessment: II - A patient with mild systemic disease. After reviewing the risks and benefits, the patient was deemed in satisfactory condition to undergo the procedure. The anesthesia plan was to use monitored anesthesia care (MAC). Immediately prior to administration of medications, the patient was re-assessed for adequacy to receive sedatives. The heart rate, respiratory rate, oxygen saturations, blood pressure, adequacy of pulmonary ventilation, and response to care were monitored throughout the procedure. The physical status of the patient was re-assessed after the procedure. After I obtained informed consent, the scope was passed under direct vision. Throughout the procedure, the patient's blood pressure, pulse, and oxygen saturations were monitored continuously. The pediatric colonoscope was introduced through the anus and advanced to the terminal ileum. The colonoscopy was performed without difficulty. The patient tolerated the procedure well. The quality of the bowel preparation was adequate. The terminal ileum, ileocecal valve, appendiceal orifice, and rectum were photographed. Scope In: 1:37:55 PM Scope Withdrawal Time 0 hours 7 minutes 31 seconds Scope Out: 1:50:40 PM Total Procedure Duration Time 0 hours 12 minutes 45 seconds Findings: The perianal and digital rectal examinations were normal. The colon (entire examined portion) appeared normal. A patchy area of the terminal ileum was congested. Biopsies were taken with a cold forceps for histology. Verification of patient identification for the specimen was done. Estimated blood loss was minimal. The exam was otherwise without abnormality on direct and retroflexion views. Impression: - The entire examined colon is normal. - Congested mucosa in the terminal ileum. Biopsied. - The examination was otherwise normal on direct and retroflexion views. Recommendation: - Discharge patient to home. - Resume previous diet. - Continue present medications. - Await pathology results. - Repeat colonoscopy for screening purposes. Procedure Code(s): --- Professional --- 99775, Colonoscopy, flexible; with biopsy, single or multiple CPT copyright 2021 [employer]. All rights reserved. The codes documented in this report are preliminary and upon him coder review may be revised to meet current compliance requirements. Torito Colindres DO 03/02/2025 2:06:20 PM This report has been signed electronically. Number of Addenda: 0 Note Initiated On: 03/02/2025 1:36 PM
--- NOTE | 2025-03-02 14:07 | OP.CCLET_ITS ---
03/02/2025 Josue Guthrie [address] [place] [id number] Re : Colonoscopy procedure for Arlette Helton Dear Dr. Guthrie This procedure was performed on Sunday, March 02, 2025. My impressions and recommendations are as follows: Impressions : - The entire examined colon is normal. - Congested mucosa in the terminal ileum. Biopsied. - The examination was otherwise normal on direct and retroflexion views. Recommendations : - Discharge patient to home. - Resume previous diet. - Continue present medications. - Await pathology results. - Repeat colonoscopy for screening purposes. My findings are described in the full procedure note, which is enclosed. If I can be of further assistance, please feel free to contact me at . Sincerely, Torito Colindres, 03/02/2025 2:06:20 PM This report has been signed electronically.
[2025-03-02 14:36] VITALS: BP 99/75
--- NOTE | 2025-03-02 14:41 | POSTOPAN2_ITS ---
Anesthesia Postop Eval I Sum Postop Eval Completion status Anesthesia document: Postop Eval 1 completed: Yes Anesthesia Postop Eval I Summary Anesthesia Postop Eval I Summary: Anesthesia Postop Eval I: Assessment Summary Airway patent Yes 03/02/25 13:59 CIDER PRESS [email or web address] Spontaneous unlabored Yes 03/02/25 13:59 CIDER PRESS [email or web address] respirations Mental status nausea No 03/02/25 13:59 CIDER PRESS [email or web address].[email or web address] Vomiting No 03/02/25 13:59 CIDER PRESS [email or web address].[email or web address] Anesthesia Postop Eval I: Fluid Summary Crystalloid volume administer 200 03/02/25 13:59 CIDER PRESS [email or web address].[email or web address] (ml) Colloids volume administered ( ml) Blood Product volume administered (ml) Total IV fluid infused 200 03/02/25 13:59 CIDER PRESS [email or web address] Anesthesia Postop Eval I: Summary Notes Anesthesia Complication No 03/02/25 13:59 CIDER PRESS [email or web address] Anesthesia Complication Comment: Post-operative progress note Anesthesia: Postop Eval II Evaluation Mental status: Awake and Calm Pain Level: 0 nausea: No Vomiting: No Complications Anesthesia Complication: No
--- NOTE | 2025-03-02 14:41 | PCM.POSTANE2 ---
Anesthesia Postop Eval I Sum Postop Eval Completion status Anesthesia document: Postop Eval 1 completed: Yes Anesthesia Postop Eval I Summary Anesthesia Postop Eval I Summary: Anesthesia Postop Eval I: Assessment Summary Airway patent Yes 03/02/25 13:59 BIAS CUTTING MACHINE [email or web address].[email or web address] Spontaneous unlabored Yes 03/02/25 13:59 BIAS CUTTING MACHINE [email or web address].[email or web address] respirations Mental status nausea No 03/02/25 13:59 BIAS CUTTING MACHINE [email or web address].[email or web address] Vomiting No 03/02/25 13:59 BIAS CUTTING MACHINE [email or web address].[email or web address] Anesthesia Postop Eval I: Fluid Summary Crystalloid volume administer 200 03/02/25 13:59 BIAS CUTTING MACHINE [email or web address].[email or web address] (ml) Colloids volume administered ( ml) Blood Product volume administered (ml) Total IV fluid infused 200 03/02/25 13:59 BIAS CUTTING MACHINE [email or web address].[email or web address] Anesthesia Postop Eval I: Summary Notes Anesthesia Complication No 03/02/25 13:59 BIAS CUTTING MACHINE OPERATOR.[email or web address] Anesthesia Complication Comment: Post-operative progress note Anesthesia: Postop Eval II Evaluation Mental status: Awake and Calm Pain Level: 0 nausea: No Vomiting: No Complications Anesthesia Complication: No
== END 2025-03-02 14:42 | disposition home or self-care (01) ==
LOC: EN 11:09 → AC 11:11
PROVIDERS: PCP Family Medicine; Referring Provider Family Medicine; Visit Provider Internal Medicine Gastroenterology
PROC: 0DJD8ZZ Inspection of Lower Intestinal Tract, Via Natural or Artificial Opening Endoscopic (ICD-10-PCS; CPT 45378; principal; 2025-03-02 12:25)
DX: R10.13 Epigastric pain (principal); K59.00 Constipation, unspecified; K63.89 Other specified diseases of intestine; K29.50 Unspecified chronic gastritis without bleeding; R13.10 Dysphagia, unspecified; Z80.0 Family history of malignant neoplasm of digestive organs; Z90.710 Acquired absence of both cervix and uterus; K31.89 Other diseases of stomach and duodenum
CPT/HCPCS: 45380; 43239; 88305; 88342

== ENCOUNTER → 2025-04-13 | Outpatient (CLI) | payer OTHER, SELFPAY ==
[2025-04-13 09:12] LABS: Bacteria 0 SEEN /hpf (None Seen); Mucous, Urine 0 SEEN /hpf (<or=2+); Red Blood Cells-Urine 0 SEEN /hpf (0-5)
[2025-04-13 09:49] LABS: Color, Urine Yellow (Yellow); Glucose, Dipstick Normal (Normal); Ketone-Dipstick Negative (Negative); Leukocyte Esterase-Dipstick Negative /ul (Negative); Nitrite-Dipstick Negative (Negative); Occult Blood-Urine Negative /ul (Negative); Protein-Dipstick Negative (Negative); Specific Gravity, Urine 1.015 (1.002-1.030); Urine Bilirubin Dipstick Negative (Negative); Urine Clarity Sl. Cloudy (Clear); Urine Urobilinogen Normal (Normal)
[2025-04-13 09:51] LABS: Erythrocyte Sedimentation Rate 5 mm/hr (0-30)
[2025-04-13 09:54] LABS: Squamous Epithelial Cells - UA 0-5 SEEN /hpf (5-10); White Blood Cells 0-5 SEEN /hpf (0-5)
[2025-04-13 10:58] LABS: Hemoglobin A1c 5.2 % (<=5.6)
[2025-04-13 12:28] LABS: Iron Binding Capacity,Total 333 ug/dL (250-450)
[2025-04-13 12:29] LABS: CRP < 3.00 mg/L (0.0-3.0); Ferritin 14 ng/mL (22-378); Iron 72 ug/dL (50-170); Iron Binding Capacity,Unsat 261 ug/dL (228-428); LDH 178 U/L (84-246); PERCENT IRON SATURATION 21.6 % (13-59); Vitamin B12 661 pg/mL (180-914)
[2025-04-15 17:08] LABS: Immunoglobulin A 76 mg/dL (87-352); Immunoglobulin E 60 IU/mL (6-495); Immunoglobulin G 1220 mg/dL (586-1602); Immunoglobulin M 76 mg/dL (26-217)
== END | disposition home or self-care (01) ==
LOC: LAB 09:09
PROVIDERS: PCP Family Medicine; Referring Provider Internal Medicine Gastroenterology; Visit Provider Internal Medicine Gastroenterology
DX: R10.13 Epigastric pain (principal); Z80.0 Family history of malignant neoplasm of digestive organs
CPT/HCPCS: 36415; 81001; 82607; 82728; 82784; 82785; 83036; 83540; 83550; 83615; 84443; 85652; 86140; 87077; 87086; 87088; 87186